=== PATIENT | female | born 1950 | race Caucasian/White ===

== ENCOUNTER 2024-07-20 17:44 | Outpatient (REF) | payer OTHER, SELFPAY ==
[2024-07-20 22:08] LABS: TSH (W/Ref FT4) 0.03 uIU/mL (0.36-3.74)
== END 2024-07-20 17:45 | disposition home or self-care (01) ==
LOC: NCHCN 17:44
PROVIDERS: Visit Provider Nurse Practitioner Family
DX: E03.9 Hypothyroidism, unspecified (principal)
CPT/HCPCS: 84439; 84443

== ENCOUNTER 2024-08-31 18:02 | Outpatient (REF) | payer MEDICARE, SELFPAY ==
[2024-08-31 21:43] LABS: Hemoglobin A1C 5.7 % (<5.7)
[2024-08-31 22:09] LABS: TSH 1.47 uIU/mL (0.36-3.74); Vitamin B12 539 pg/mL (193-986)
== END 2024-08-31 18:03 | disposition home or self-care (01) ==
LOC: NCHCN 18:02
PROVIDERS: Visit Provider Nurse Practitioner Family
DX: E03.9 Hypothyroidism, unspecified (principal)
CPT/HCPCS: 82607; 83036; 84443

== ENCOUNTER 2024-09-07 16:56 | Outpatient (REF) | payer MEDICARE, SELFPAY ==
[2024-09-07 16:59] LABS: TSH 0.42 uIU/mL (0.36-3.74)
== END 2024-09-07 16:57 | disposition home or self-care (01) ==
LOC: NCHCN 16:56
PROVIDERS: Visit Provider Nurse Practitioner Family
DX: E03.9 Hypothyroidism, unspecified (principal)
CPT/HCPCS: 84443

== ENCOUNTER 2024-09-30 09:30 | Outpatient (REF) | payer MEDICARE, SELFPAY ==
[2024-09-30 22:06] LABS: Hemoglobin A1C 6.1 % (<5.7)
[2024-09-30 23:26] LABS: ALT 27 U/L (14-59); AST 27 U/L (15-37); Albumin 3.3 g/dL (3.4-5.0); Alkaline Phosphatase 70 U/L (46-116); Anion Gap 6.6 mmol/L (3-11); BUN 10 mg/dL (7-18); Bilirubin, Total 0.86 mg/dL (0.2-1.0); CO2 28.4 mmol/L (21.0-32.0); Calcium 8.8 mg/dL (8.5-10.1); Calculated LDL 148 mg/dL (<100); Chloride 105 mmol/L (98-107); Cholesterol 232 mg/dL (<200); Estimated GFR 59.12 (mL/min/1.73m2); Glucose 107 mg/dL (74-106); HDL Cholesterol 57 mg/dL (40-60); Potassium 3.4 mmol/L (3.5-5.1); Sodium 140 mmol/L (136-145); TSH (W/Ref FT4) 0.65 uIU/mL (0.36-3.74); Total Protein 7.3 g/dL (6.4-8.2); Triglyceride 138 mg/dL (<150)
== END 2024-09-30 09:31 | disposition home or self-care (01) ==
LOC: NCHCN 09:30
PROVIDERS: Visit Provider Nurse Practitioner Family
DX: E03.9 Hypothyroidism, unspecified (principal); R73.03 Prediabetes
CPT/HCPCS: 80053; 80061; 83036; 84443

== ENCOUNTER 2024-10-05 15:06 | Outpatient (REF) | payer MEDICARE, SELFPAY ==
[2024-10-05 15:01] LABS: HCT 45.5 % (36.0-46.0); HGB 15.3 g/dL (11.2-15.7); MCH 30.7 pg (27.0-33.0); MCHC 33.6 % (32.0-36.0); MCV 91 fL (80-95); MPV 10.7 fL (8.0-11.0); Platelet Count 265 10^3/uL (130-400); RBC 4.99 10^6/uL (3.93-5.22); RDW 13.1 % (11.7-14.6); RDW-SD 43.4 fL; WBC 5.46 10^3/uL (4.4-10.8)
== END 2024-10-05 15:07 | disposition home or self-care (01) ==
LOC: NCHCN 15:06
PROVIDERS: Visit Provider Nurse Practitioner Family
DX: G31.84 Mild cognitive impairment of uncertain or unknown etiology (principal)
CPT/HCPCS: 85027

== ENCOUNTER 2024-11-15 13:27 | Outpatient (REF) | payer MEDICARE, SELFPAY ==
[2024-11-15 15:43] LABS: TSH 1.51 uIU/mL (0.36-3.74)
[2024-11-16 14:03] LABS: Calculated LDL 163 mg/dL (<100); Cholesterol 253 mg/dL (<200); HDL Cholesterol 60 mg/dL (>or=50); Triglyceride 151 mg/dL (<150)
== END 2024-11-15 13:28 | disposition home or self-care (01) ==
LOC: NCHCN 13:27
PROVIDERS: PCP Nurse Practitioner Family; Visit Provider Nurse Practitioner Family
DX: E03.9 Hypothyroidism, unspecified (principal); E78.00 Pure hypercholesterolemia, unspecified
CPT/HCPCS: 80061; 84443